=== PATIENT | female | born 1970 | race Caucasian/White ===

== ENCOUNTER 2016-11-25 05:09 | Day surgery (SDC) | payer OTHER ==
[~2016-11-25] VITALS: Ht 175.3 cm; Wt 94.2 kg
--- NOTE | ~2016-11-25 | O ---
[facility] [place] [address] OPERATIVE REPORT Name: LYDIA LLAMAS Room #: DEP [facility] [place] M.R.#: [id number] Admission: 11/25/16 Attend Phys: Thomas Zarate MD Discharge: 11/25/16 Date of : 68 Report #: [id number] THIS REPORT FOR: //name// CC: Alberto Zarate DATE OF SERVICE: 11/25/2016 PREOPERATIVE DIAGNOSIS: Left calcaneonavicular coalition. POSTOPERATIVE DIAGNOSIS: Left calcaneonavicular coalition. PROCEDURE: Left calcaneonavicular coalition excision. SURGEON: Thomas Zarate M.D. ANESTHESIA: General. ESTIMATED BLOOD LOSS: Minimal. DRAINS: No drains. TOURNIQUET TIME: 30 minutes. DESCRIPTION OF PROCEDURE: The patient was brought to the operating room, where she was placed under general anesthesia. Once under adequate general anesthesia, her left lower extremity was prepped and draped in a sterile manner. The extremity was elevated and exsanguinated and tourniquet placed to 300 mmHg. A lateral incision overlying the calcaneonavicular coalition at the sinus tarsi region was then made. This was dissected down through the soft tissue to the extensor digitorum brevis. This was then elevated off of the coalition. A sagittal saw was then utilized to transect the bone above and below the coalition, thus resecting the coalition utilizing an osteotome and a rongeur. Once complete, there was good clearance from both sides of the coalition. Bone wax was utilized to cover any cancellous bone. The wound was then irrigated copiously and closed with 2-0 Vicryl in deep and subcutaneous tissues and micky were used for the skin. Wounds were dressed with Xeroform and 4 x 4s and a sterile soft compressive dressing was placed. Tourniquet was let down at approximately 30 minutes. Toes were pink and warm, with good capillary refill. There were no complications from the procedure. The patient tolerated the procedure well and went to the recovery room without incident. <ELECTRONICALLY SIGNED> By: Thomas Zarate MD 11/26/16 [id number] Thomas Zarate MD /nt
[~2016-11-25 05:09] MED LIST: BACTRIM DS TAB1 EACH PO; CLOBETASOL PROP15 GM TOP; CO Q-10100 MG PO; FISH OIL EC 1,1 EAC1 PO; FISH OIL500 M2 PO; LEVOTHYROXIN0.125 M1 PO; LIGAPLEX PO; MILK THISTLE200 M1 PO; OLIVE LEAF EXT250 MG PO; PANTETHINE PO; PREVACID15 MG PO; PROBIOTIC1 EAC1 PO; RESTASIS1 EACH OPHTHALMIC; SERTRALINE HCL100 MG PO; TRAZODONE 150150 M1 PO; VALERIAN ROOT250 MG PO; VALTREX 500 MG500 M1 PO; VITAMIN B COMP1 EACH PO; VITAMINC500 PO; WELLBUTRIN XL300 MG PO; XOPENEX HFA15 GM INH; [UNRECOGNIZED DRUG - OTHER] PO; [UNRECOGNIZED DRUG - OTHER] PO; [UNRECOGNIZED DRUG - OTHER] PO; [UNRECOGNIZED DRUG - OTHER] PO
[2016-11-25] MEDS ORDERED: PERCOCET 7.5-31 EACH PO (09:55)
[2016-11-25 10:27] VITALS: BP 128/77
[2016-11-25 10:35] VITALS: BP 128/77
== END 2016-11-25 11:35 | disposition home or self-care (01) ==
LOC: OR 05:09 → TBA 05:09 → OR 10:32
DX: Q66.89 Other specified congenital deformities of feet (principal); F32.9 Major depressive disorder, single episode, unspecified; J45.909 Unspecified asthma, uncomplicated; Z87.891 Personal history of nicotine dependence; K21.9 Gastro-esophageal reflux disease without esophagitis; E03.9 Hypothyroidism, unspecified; M79.7 Fibromyalgia; Z90.710 Acquired absence of both cervix and uterus; Z98.890 Other specified postprocedural states
CPT/HCPCS: 50010; 50101; 50386; 50951; 51412; 56524; 56525; 56526; 57091; 62110; 62900; 70005